=== PATIENT | male | born 1980 | race Caucasian/White ===

== ENCOUNTER 2024-05-21 19:13 | Emergency (ER) | payer OTHER ==
--- NOTE | 2024-05-21 20:16 | NUR ---
CALLED FOR PT AT 1999; NO RESPONSE, PT NOT FOUND IN LOBBY.
--- NOTE | 2024-05-21 20:30 | NUR ---
CALLED FOR PT IN LOBBY; NO RESPONSE; PT NOT FOUND IN LOBBY.
== END 2024-05-21 20:00 | disposition left against medical advice (07) ==
LOC: EDH 19:13
DX: R11.2 Nausea with vomiting, unspecified (principal); R19.7 Diarrhea, unspecified; M79.10 Myalgia, unspecified site; Z53.21 Procedure and treatment not carried out due to patient leaving prior to being seen by health care provider